=== PATIENT | female | born 1935 | race Hispanic/Latino ===

== ENCOUNTER 2018-04-09 09:08 | Emergency (ER) | payer MEDICARE ==
[2018-04-09] MEDS ORDERED: HYDROCODONE/APAP 5/325 MG TAB ONE (09:40)
--- NOTE | 2018-04-09 10:36 | RAD REPORT ---
EXAM DESCRIPTION: RAD - Wrist Left 3 View - 04/09/2018 9:46 am CLINICAL HISTORY: Persistent wrist pain following fall 2 days earlier COMPARISON: None. FINDINGS: No fracture is identified. There is no dislocation or periosteal reaction noted. Degenerat matt calcifications are present at the triangular fibrocartilage. There are mild degenerative changes at the trapezium first metacarpal articulation. IP joint degenerative changes are present. Minimal miryam int space narrowing at the third MCP joint. No air or foreign body in the soft tissues. IMPRESSION: Left hand and wrist degenerative changes are present as detailed. No fracture or acute finding confirmed.
--- NOTE | 2018-04-09 10:45 | EDPHYS ---
Physician Documentation [facility] Name: Rosa Hoang Age: 82 yrs Sex: Female : 1935 Arrival Date: 04/09/2018 Time: 09:11 Bed 19 Private MD: Aspen Kaplan H ED Physician Theron Rodriguez HPI: 04/09 10:23 This 82 yrs old Female presents to ER via Ambulatory with complaints of Left pm1 Wrist Injury. 10:23 The patient or guardian reports pain. The complaints affect the left wrist diffusely. pm1 Context: The problem was sustained outdoors, resulted from a fall, while walking, on an outstretched hand. Onset: The symptoms/episode began/occurred 2 day(s) ago. Modifying factors: The symptoms are alleviated by holding still, the symptoms are aggravated by movement. Associated signs and symptoms: Pertinent negatives: cyanosis distally, decreased sensation distally, fever, numbness distally, tingling distally. The patient has not experienced similar symptoms in the past. The patient has not recently seen a physician. No head injury, headache, neck pain, or LOC. Historical: - Allergies: 09:21 No Known Allergies; hb - Home Meds: 09:21 levothyroxine 75 mcg tab 1 tab once daily [Active]; hb - PMHx: 09:21 breast cancer; Hypertension; Hypothyroidism; hb - PSHx: 09:21 Appendectomy; Left Shoulder; Mastectomy, Right; Back surgery; hb - Immunization history:: Adult Immunizations up to date. - Social history:: Smoking status: Patient/guardian denies using tobacco. - Ebola Screening: : No symptoms or risks identified at this time. ROS: 10:23 Constitutional: Negative for fever, chills, and weight loss, Eyes: Negative for injury, pm1 pain, redness, and discharge, ENT: Negative for injury, pain, and discharge, Neck: Negative for injury, pain, and swelling, Cardiovascular: Negative for chest pain, palpitations, and edema, Respiratory: Negative for shortness of breath, cough, wheezing, and pleuritic chest pain, Abdomen/GI: Negative for abdominal pain, nausea, vomiting, diarrhea, and constipation, Back: Negative for injury and pain, : Negative for injury, bleeding, discharge, and swelling. 10:23 Skin: Negative for injury, rash, and discoloration, Neuro: Negative for headache, weakness, numbness, tingling, and seizure. 10:23 MS/extremity: Positive for pain, swelling, of the left wrist. Exam: 10:23 Hand exam: is negative for snuff box/scaphoid tenderness, Exam is positive for pm1 tenderness, diffusely on left wrist. Pulses: noted to be 2+ in the left radial artery, brisk capillary refill, sensation intact. 10:23 Constitutional: This is a well developed, well nourished patient who is awake, alert, and in no acute distress. Head/Face: Normocephalic, atraumatic. Neck: Trachea midline, no thyromegaly or masses palpated, and no cervical lymphadenopathy. Supple, full range of motion without nuchal rigidity, or vertebral point tenderness. No Meningismus. Chest/axilla: Normal chest wall appearance and motion. Nontender with no deformity. No lesions are appreciated. Cardiovascular: Regular rate and rhythm with a normal S1 and S2. No gallops, murmurs, or rubs. Normal PMI, no JVD. No pulse deficits. Respiratory: Lungs have equal breath sounds bilaterally, clear to auscultation and percussion. No rales, rhonchi or wheezes noted. No increased work of breathing, no retractions or nasal flaring. Back: No spinal tenderness. No costovertebral tenderness. Full range of motion. Skin: Warm, dry with normal turgor. Normal color with no rashes, no lesions, and no evidence of cellulitis. 10:23 Neuro: Orientation: is normal, Motor: is normal, moves all fours, Sensation: is normal, no obvious gross deficits. Vital Signs: 09:19 BP 187 / 88; Pulse 93; Resp 16; Temp 97.3; Pulse Ox 100% on R/A; Pain 10/10; hb 10:45 BP 149 / 73; Pulse 81; Resp 18; Pulse Ox 98% on R/A; Pain 7/10; em MDM: 09:19 Patient medically screened. pm1 10:29 Data reviewed: vital signs. Data interpreted: Pulse oximetry: on room air is 100 %. pm1 Interpretation: normal. 10:36 Counseling: I had a detailed discussion with the patient and/or guardian regarding: the pm1 historical points, exam findings, and any diagnostic results supporting the discharge/admit diagnosis, radiology results, the need for outpatient follow up, for definitive care, a orthopedic surgeon, to return to the emergency department if symptoms worsen or persist or if there are any questions or concerns that arise at home. 04/09 09:25 Order name: Wrist Left (3 View) XRAY; Complete Time: 10:41 pm1 04/09 10:43 Order name: Wrist Splint; Complete Time: 11:14 pm1 Administered Medications: 09:32 Drug: [place] 5 mg-325 mg 1 tabs Route: PO; em 11:14 Follow up: Response: No adverse reaction; Pain is decreased em Disposition: 12:59 Co-signature as Attending Physician, Theron Rodriguez MD I agree with the assessment and kdr plan of care. Disposition: 04/09/18 10:44 Discharged to Home. Impression: Unspecified sprain of left wrist. - Condition is Stable. - Discharge Instructions: Cast or Splint Care, Adult, Wrist Pain, Wrist Splint, How to Use a Sling. - Prescriptions for Tylenol- Codeine #3 300-30 mg Oral Tablet - take 1 tablet by ORAL route every 6 hours As needed; 15 tablet. - Medication Reconciliation Form, Thank You Letter, Antibiotic Education, Prescription Opioid Use form. - Follow up: Emergency Department; When: As needed; Reason: Worsening of condition. Follow up: Dr. Edy Pena; When: 2 - 3 days; Reason: Recheck today's complaints, Continuance of care, Re-evaluation by your physician. - Problem is new. - Symptoms have improved. Signatures: Dispatcher [employer] EDKY Theron Rodriguez MD MD [facility] Thomas Ireland, CAGE LOADER CAGE LOADER em Murray Munoz, CAMP NURSE CAMP NURSE pm1 Dahlia Perez, RN RN hb Corrections: (The following items were deleted from the chart) 10:43 10:18 Splint - Sugar Tong - Forearm ordered. pm1 pm1 11:14 10:18 Sling ordered. pm1 em 11:15 10:44 04/09/2018 10:44 Discharged to Home. Impression: Unspecified sprain of left em wrist. Condition is Stable. Discharge Instructions: Cast or Splint Care, Adult, Wrist Splint, How to Use a Sling. Prescriptions for Tylenol-Codeine #3 300-30 mg Oral Tablet - take 2 tablets by ORAL route every 6 hours As needed; 20 tablet. and Forms are Medication Reconciliation Form, Thank You Letter, Antibiotic Education, Prescription Opioid Use. Follow up: Emergency Department; When: As needed; Reason: Worsening of condition. Follow up: Dr. Edy Pena; When: 2 - 3 days; Reason: Recheck today's complaints, Continuance of care, Re-evaluation by your physician. Problem is new. Symptoms have improved. pm1
--- NOTE | 2018-04-09 10:45 | ER ---
Nurse's Notes [facility] Name: Rosa Hoang Age: 82 yrs Sex: Female : 1935 Arrival Date: 04/09/2018 Time: 09:11 Bed 19 Private MD: Aspen Kaplan H Diagnosis: Unspecified sprain of left wrist Presentation: 04/09 09:20 Presenting complaint: Left wrist pain and swelling after fall onto outstretched hand 2 hb days ago. Transition of care: patient was not received from another setting of care. Onset of symptoms was April 07, 2018. Risk Assessment: Do you want to hurt yourself or someone else? Patient reports no desire to harm self or others. Initial Sepsis Screen: Does the patient meet any 2 criteria? No. Patient's initial sepsis screen is negative. Does the patient have a suspected source of infection? No. Patient's initial sepsis screen is negative. Care prior to arrival: None. 09:20 Method Of Arrival: Ambulatory hb 09:20 Acuity: LEE 4 hb Historical: - Allergies: 09:21 No Known Allergies; hb - Home Meds: 09:21 levothyroxine 75 mcg tab 1 tab once daily [Active]; hb - PMHx: 09:21 breast cancer; Hypertension; Hypothyroidism; hb - PSHx: 09:21 Appendectomy; Left Shoulder; Mastectomy, Right; Back surgery; hb - Immunization history:: Adult Immunizations up to date. - Social history:: Smoking status: Patient/guardian denies using tobacco. - Ebola Screening: : No symptoms or risks identified at this time. Screenin:21 Abuse screen: Denies threats or abuse. Denies injuries from another. Nutritional hb screening: No deficits noted. Tuberculosis screening: No symptoms or risk factors identified. Fall Risk None identified. Assessment: 09:50 General: Appears in no apparent distress. uncomfortable, Behavior is calm, cooperative, em reports trip injury 2 days ago. Pain: Complains of pain in left wrist Pain currently is 10 out of 10 on a pain scale. Quality of pain is described as sharp, Pain began Thursday. Neuro: Level of Consciousness is awake, alert, obeys commands, Oriented to person, place, time, situation. Cardiovascular: Patient's skin is warm and dry. Respiratory: Airway is patent Respiratory effort is even, unlabored, Respiratory pattern is regular, symmetrical. Derm: Skin is intact, is thin, Skin is pink, warm \T\ dry. Musculoskeletal: Circulation, motion, and sensation intact. Capillary refill < 3 seconds, Range of motion: intact in all extremities, Swelling present in left hand. Vital Signs: 09:19 BP 187 / 88; Pulse 93; Resp 16; Temp 97.3; Pulse Ox 100% on R/A; Pain 10/10; hb 10:45 BP 149 / 73; Pulse 81; Resp 18; Pulse Ox 98% on R/A; Pain 7/10; em ED Course: 09:11 Patient arrived in ED. as 09:11 Aspen Kaplan DO is Private Physician. as 09:15 [facility]. pm1 09:15 Theron Rodriguez MD is Attending Physician. pm1 09:20 Triage completed. hb 09:21 Arm band placed on. hb 09:21 Patient has correct armband on for positive identification. Bed in low position. Call hb light in reach. Side rails up X 1. 09:25 Isela Diaz RN is Primary Nurse. sv 09:47 X-ray completed. Portable x-ray completed in exam room. Patient tolerated procedure sw well. 09:49 Wrist Left (3 View) XRAY In Process Unspecified. EDMS 10:43 Edy Pena MD is Referral Physician. pm1 11:15 No provider procedures requiring assistance completed. Patient did not have IV access em during this emergency room visit. Administered Medications: 09:32 Drug: [place] 5 mg-325 mg 1 tabs Route: PO; em 11:14 Follow up: Response: No adverse reaction; Pain is decreased em Outcome: 10:44 Discharge ordered by . pm1 11:15 Discharged to home ambulatory, with family. em 11:15 Condition: good 11:15 Discharge instructions given to patient, Instructed on discharge instructions, follow up and referral plans. medication usage, Demonstrated understanding of instructions, follow-up care, medications, Prescriptions given X 1. 11:15 Patient left the ED. em Signatures: Dispatcher [employer] EDLA Isela Diaz RN RN sv Thomas Ireland, AVIATION TECHNICIAN AIRCRAFT AVIATION TECHNICIAN AIRCRAFT em Leatha Fletcher Shannon Murray Munoz NP SATURATION EQUIPMENT OPERATOR pm1 Dahlia Perze, RN RN hb
[2018-04-09 11:20] VITALS: TEMP 97.3
[2018-04-09 11:22] VITALS: BP 149/73; O2SAT 98
== END 2018-04-09 11:15 | disposition home or self-care (01) ==
LOC: ER 09:08
DX: S63.502A Unspecified sprain of left wrist, initial encounter (principal); W18.39XA Other fall on same level, initial encounter; Y93.01 Activity, walking, marching and hiking; Y92.89 Other specified places as the place of occurrence of the external cause; Z85.3 Personal history of malignant neoplasm of breast; Z90.11 Acquired absence of right breast and nipple; I10 Essential (primary) hypertension; E03.9 Hypothyroidism, unspecified
CPT/HCPCS: 99283

== ENCOUNTER 2021-11-24 09:18 | Emergency (ER) | payer OTHER ==
[2021-11-24 09:52] LABS: Absolute Lymphocytes (CBC) 3.1 K/uL (0.7-4.9); Hematocrit 39.8 % (36.0-45.0); Lymphocytes % 40.5 % (15.3-44.8); MCV 93.8 fL (80-100); MPV 8.4 fL (7.6-11.3); RBC Red Blood Cell Count 4.24 M/uL (3.86-4.86)
[2021-11-24 10:35] LABS: Troponin High Sensitivity 5.3 pg/mL (<58.9)
--- NOTE | 2021-11-24 10:41 | RAD REPORT ---
EXAM DESCRIPTION: CT - CTHCSPWOC - 11/24/2021 10:03 am CLINICAL HISTORY: left arm tingling, stroke-like symptoms, chest discomfort, hypertension, breast ca ncer, prior appendectomy, right mastectomy and back surgery COMPARISON: No comparisons TECHNIQUE: Axial 5 mm thick images of the head were obtained. Axial 2 mm thick images of the cervic al spine were obtained with sagittal and coronal reconstruction images generated and reviewed. All CT scans are performed using dose optimization technique as appropriate and may include automated exposure control or mA/KV adjustment according to patient size. FINDINGS: No intracranial hemorrhage, mass, edema or acute intracranial finding. No suspicion for ac [place] infarction. No significant atrophy or chronic ischemic changes seen. Ventricle. Mastoid air cells are clear. No acute paranasal sinus finding. No globe or orbit abnormality seen. Cervical body height and alignment are normal. C5-6 disc space narrowing present. No fracture or acut e bony abnormality. Prominent facet joint degenerative changes are present. There are calcifications of the transverse ligament posterior to the dens. Mild to moderate amount of foraminal encroachment o n the right C4-5. There is moderate foraminal stenosis on the left at C5-6. Central canal detail is i nherently limited. No paraspinal mass or hematoma. Limited imaging of the uppermost chest shows scarring at the left apex. IMPRESSION: Negative CT head examination for acute or significant finding. Negative CT cervical spine examination for acute or significant finding.
--- NOTE | 2021-11-24 12:57 | RAD REPORT ---
EXAM DESCRIPTION: RAD - Chest Single View - 11/24/2021 12:47 pm CLINICAL HISTORY: left arm tingling, chest discomfort COMPARISON: Two view chest 02/24/2021 TECHNIQUE: AP portable chest image was obtained 11/24/2021 12:47 pm . FINDINGS: No focal lung parenchymal process. Interstitial pattern is not clearly different from the comparison. Failure and volume overload are not suspected. Heart and vasculature are normal. No measu rable pleural effusion and no pneumothorax. No acute bony abnormality seen. No acute aortic finding. Right mastectomy changes are present with surgical clips in the right axilla. IMPRESSION: No acute cardiopulmonary process.
--- NOTE | 2021-11-24 13:04 | EDPHYS ---
Physician Documentation [facility] Name: Rosa Hoang Age: 86 yrs Sex: Female : 1935 Arrival Date: 11/24/2021 Time: 09:20 Bed 20 Private MD: Aspen Kaplan H ED Physician Avni Muhammad HPI: 11/24 09:35 This 86 yrs old Female presents to ER via Ambulatory with complaints of rn Numbness Of Arm. 09:36 The patient or guardian complains of numbness. rn 09:37 The complaints affect the anterior aspect of left shoulder, left bicep and dorsal rn aspect of left forearm. Onset: The symptoms/episode began/occurred 2 day(s) ago. Modifying factors: The symptoms are alleviated by massaging arm. the symptoms are aggravated by nothing. Severity of symptoms: At their worst the symptoms were moderate, in the emergency department the symptoms have improved. The patient has not experienced similar symptoms in the past. The patient has not recently seen a physician. Pt reports intermittent tingling and feeling "left arm asleep", began 2 days ago, better with massage of arm. Happens at night and during day. Currently feels ok. No neck pain. No trauma or fall. No chest pain. . Historical: - Allergies: : No Known Allergies; tw2 - Home Meds: : levothyroxine 75 mcg tab 1 tab once daily [Active]; tw2 - PMHx: :27 breast cancer; Hypertension; Hypothyroidism; tw2 - PSHx: :27 Appendectomy; back sx; R breast mastectomy; tw2 - Immunization history:: Client reports receiving the 2nd dose of the Covid vaccine. - Social history:: Smoking status: Patient denies any tobacco usage or history of. Patient uses alcohol, occasionally. - Family history:: not pertinent. - Hospitalizations: : No recent hospitalization is reported. ROS: 09:37 Constitutional: Negative for fever, chills, and weight loss, Eyes: Negative for injury, rn pain, redness, and discharge, Neck: Negative for injury, pain, and swelling, Cardiovascular: Negative for chest pain, palpitations, and edema, Respiratory: Negative for shortness of breath, cough, wheezing, and pleuritic chest pain, Abdomen/GI: Negative for abdominal pain, nausea, vomiting, diarrhea, and constipation, Back: Negative for injury and pain, MS/Extremity: Negative for injury and deformity, Skin: Negative for injury, rash, and discoloration, Neuro: Negative for headache, weakness, and seizure. Exam: 09:37 Constitutional: This is a well developed, well nourished patient who is awake, alert, rn and in no acute distress. Head/Face: Normocephalic, atraumatic. Eyes: Periorbital areas with no swelling, redness, or edema. Neck: Trachea midline, no thyromegaly or masses palpated, and no cervical lymphadenopathy. Supple, full range of motion without nuchal rigidity, or vertebral point tenderness. No Meningismus. Cardiovascular: Regular rate and rhythm. No pulse deficits. Respiratory: Speaking full sentences, unlabored. No increased work of breathing, no retractions or nasal flaring. Abdomen/GI: Soft, non-tender Skin: Warm, dry with normal turgor. Normal color with no rashes, no lesions, and no evidence of cellulitis. MS/ Extremity: Pulses equal, no cyanosis. Neurovascular intact. Full, normal range of motion. Equal circumference. Neuro: Awake and alert, GCS 15, oriented to person, place, time, and situation. Cranial nerves II-XII grossly intact. Motor strength 5/5 in all extremities. Sensory grossly intact. Cerebellar exam normal. Normal gait. 10:00 ECG was reviewed by the Attending Physician. rn Vital Signs: 09:25 BP 161 / 86; Pulse 74; Resp 17; Temp 99.1(TE); Pulse Ox 98% on R/A; Weight 63.5 kg (R); tw2 Pain 0/10; 09:59 BP 146 / 60; Pulse 80; Resp 16; Pulse Ox 98% ; mb8 12:11 BP 183 / 66; Pulse 66; Resp 14; Pulse Ox 99% ; Pain 0/10; mb8 12:26 BP 173 / 59; Pulse 67; Resp 18; Pulse Ox 97% ; Pain 0/10; mb8 MDM: 09:23 Patient medically screened. rn 13:00 Differential diagnosis: radiculopathy, neuropathy, cardiac etiology, anxiety. Data rn reviewed: vital signs, nurses notes, lab test result(s), EKG, radiologic studies, CT scan, plain films, and as a result, I will discharge patient. Counseling: I had a detailed discussion with the patient and/or guardian regarding: the historical points, exam findings, and any diagnostic results supporting the discharge/admit diagnosis, lab results, radiology results, the need for outpatient follow up, to return to the emergency department if symptoms worsen or persist or if there are any questions or concerns that arise at home. Special discussion: I discussed with the patient/guardian in detail that at this point there is no indication for admission to the hospital. It is understood, however, that if the symptoms persist or worsen the patient needs to return immediately for re-evaluation. ED course: Neg trop and ecg, cxr neg, stable vitals. CT head neg, cspine shows foraminal stenosis on right and left side that could explain intermittent tingling to arm. Will dc home with pcp f/u and return precautions.. 11/24 09:34 Order name: Basic Metabolic Panel; Complete Time: 11:11/24 09:34 Order name: CBC with Diff; Complete Time: 11:11/24 09:34 Order name: Magnesium; Complete Time: 11:11/24 09:34 Order name: NT PRO-BNP; Complete Time: 11:11/24 09:34 Order name: Troponin HS; Complete Time: 11:11/24 09:34 Order name: XRAY Chest (1 view); Complete Time: 12:59 11/24 09:34 Order name: EKG; Complete Time: 09:35 11/24 09:34 Order name: Cardiac monitoring; Complete Time: 09:47 11/24 09:34 Order name: EKG - Nurse/Tech; Complete Time: 09:56 11/24 09:34 Order name: IV Saline Lock; Complete Time: 09:47 11/24 09:34 Order name: Labs collected and sent; Complete Time: 09:47 11/24 09:34 Order name: O2 Per Protocol; Complete Time: :47 11/24 09:34 Order name: O2 Sat Monitoring; Complete Time: 09:11/24 09:34 Order name: CT Head C Spine; Complete Time: 11:11/24 09:55 Order name: Labs - recollect needed: recollect chemistries; Complete Time: 10:12 eb EC:00 Rate is 65 beats/min. Rhythm is regular. QRS [place] is Normal. [place] interval is normal. QRS rn interval is normal. QT interval is normal. No Q waves. T waves are Normal. No ST changes noted. Clinical impression: Normal ECG. Interpreted by me. Reviewed by me. Administered Medications: No medications were administered Disposition Summary: 11/24/21 13:03 Discharge Ordered Location: Home rn Problem: new rn Symptoms: have improved rn Condition: Stable rn Diagnosis - Paresthesia of skin rn Followup: rn - With: Private Physician - When: As needed - Reason: Recheck today's complaints, Re-evaluation by your physician Discharge Instructions: - Discharge Summary Sheet rn - Paresthesia rn Forms: - Medication Reconciliation Form rn - Thank You Letter rn - Antibiotic learning coordinator - Prescription Opioid Use rn Signatures: Dispatcher [employer] EDAvni Barnhart MD MD rn Wise, Tara, RN RN tw2 Botello, Elizabeth eb Corrections: (The following items were deleted from the chart) 09:40 09:37 Constitutional: This is a well developed, well nourished patient who is awake, rn alert, and in no acute distress. Head/Face: Normocephalic, atraumatic. Eyes: Periorbital areas with no swelling, redness, or edema. Cardiovascular: Regular rate and rhythm. No pulse deficits. Respiratory: Speaking full sentences, unlabored. No increased work of breathing, no retractions or nasal flaring. Abdomen/GI: Soft, non-tender Skin: Warm, dry with normal turgor. Normal color with no rashes, no lesions, and no evidence of cellulitis. MS/ Extremity: Pulses equal, no cyanosis. Neurovascular intact. Full, normal range of motion. Equal circumference. Neuro: Awake and alert, GCS 15, oriented to person, place, time, and situation. Cranial nerves II-XII grossly intact. Motor strength 5/5 in all extremities. Sensory grossly intact. Cerebellar exam normal. Normal gait. rn
--- NOTE | 2021-11-24 13:04 | ER ---
Nurse's Notes [facility] Name: Rosa Hoang Age: 86 yrs Sex: Female : 1935 Arrival Date: 11/24/2021 Time: 09:20 Bed 20 Private MD: Aspen Kaplan H Diagnosis: Paresthesia of skin Presentation: 11/24 09:25 Chief complaint: Patient states: my LEFT arm has been going to sleep and i feel that tw2 but i hear something in my chest and it started on Thursday. i couldn't sleep last night. but no pain. i live by myself so i wanted to get it checked out. Coronavirus screen: At this time, the client does not indicate any symptoms associated with coronavirus-19. Ebola Screen: Patient denies travel to an Ebola-affected area in the 21 days before illness onset. Initial Sepsis Screen: Does the patient meet any 2 criteria? No. Patient's initial sepsis screen is negative. Does the patient have a suspected source of infection? No. Patient's initial sepsis screen is negative. Risk Assessment: Do you want to hurt yourself or someone else? Patient reports no desire to harm self or others. Onset of symptoms was November 24, 2021. 09: Method Of Arrival: Ambulatory tw2 : Acuity: LEE 3 tw2 Triage Assessment: : General: Appears in no apparent distress. well groomed, Behavior is calm, cooperative, tw2 appropriate for age. Pain: Complains of pain in left arm. Neuro: Level of Consciousness is awake, alert, obeys commands, Oriented to person, place, time, situation. Cardiovascular: Patient's skin is warm and dry. Respiratory: Airway is patent Respiratory effort is even, unlabored, Respiratory pattern is regular, symmetrical. Historical: - Allergies: : No Known Allergies; tw2 - Home Meds: levothyroxine 75 mcg tab 1 tab once daily [Active]; tw2 - PMHx: breast cancer; Hypertension; Hypothyroidism; tw2 - PSHx: Appendectomy; back sx; R breast mastectomy; tw2 - Immunization history:: Client reports receiving the 2nd dose of the Covid vaccine. - Social history:: Smoking status: Patient denies any tobacco usage or history of. Patient uses alcohol, occasionally. - Family history:: not pertinent. - Hospitalizations: : No recent hospitalization is reported. Screenin:59 Abuse screen: Denies threats or abuse. Denies injuries from another. Nutritional mb8 screening: No deficits noted. Tuberculosis screening: No symptoms or risk factors identified. Tuberculosis screening: No symptoms or risk factors identified. Fall Risk None identified. Assessment: 09:30 Cardiovascular: Reports left arm tingling, reports it is intermittent. Denies chest mb8 pain, shortness of breath, Capillary refill < 3 seconds Pulses are all present. are 2+ in right radial artery and left radial artery. Respiratory: Breath sounds are clear bilaterally. GI: No deficits noted. : No deficits noted. 10:30 Reassessment: Patient and/or family updated on plan of care and expected duration. Pain mb8 level reassessed. Patient is alert, oriented x 3, equal unlabored respirations, skin warm/dry/pink. 11:30 Reassessment: Patient and/or family updated on plan of care and expected duration. Pain mb8 level reassessed. Patient is alert, oriented x 3, equal unlabored respirations, skin warm/dry/pink. 12:12 Reassessment: Patient and/or family updated on plan of care and expected duration. Pain mb8 level reassessed. Patient is alert, oriented x 3, equal unlabored respirations, skin warm/dry/pink. 12:44 Reassessment: unable to see XRAY. Notified radiology department. Awaiting to XRAY ss results prior to disposition. Vital Signs: 09:25 BP 161 / 86; Pulse 74; Resp 17; Temp 99.1(TE); Pulse Ox 98% on R/A; Weight 63.5 kg (R); tw2 Pain 0/10; 09:59 BP 146 / 60; Pulse 80; Resp 16; Pulse Ox 98% ; mb8 12:11 BP 183 / 66; Pulse 66; Resp 14; Pulse Ox 99% ; Pain 0/10; mb8 12:26 BP 173 / 59; Pulse 67; Resp 18; Pulse Ox 97% ; Pain 0/10; mb8 Vitals: 09:59 Cardiac Rhythm Assessment Sinus rhythm. mb8 12:11 Cardiac Rhythm Assessment Sinus rhythm. mb8 ED Course: 09:20 Patient arrived in ED. mr 09:21 Aspen Kaplan DO is Private Physician. mr 09:23 Avni Muhammad MD is Attending Physician. rn 09:27 Triage completed. tw2 09:28 Arm band placed on. tw2 09:30 Patient has correct armband on for positive identification. Placed in gown. Bed in low mb8 position. Call light in reach. Side rails up X2. Client placed on continuous cardiac and pulse oximetry monitoring. NIBP monitoring applied. compliance monitor on. 09:31 Juan Pablo Garcia, RN is Primary Nurse. mb8 09:40 Inserted saline lock: 20 gauge in left antecubital area, using aseptic technique. Blood mb8 collected. 10:00 No provider procedures requiring assistance completed. mb8 10:05 CT Head C Spine In Process Unspecified. EDMS 10:12 XRAY Chest (1 view) Sent. mb8 10:17 XRAY Chest (1 view) In Process Unspecified. EDMS 13:19 IV discontinued, intact, bleeding controlled, No redness/swelling at site. Pressure mb8 dressing applied. Administered Medications: No medications were administered Medication: 09:59 VIS not applicable for this client. mb8 Outcome: 13:03 Discharge ordered by . rn 13:18 Discharged to home ambulatory. mb8 13:18 Condition: stable 13:18 Discharge instructions given to patient, Instructed on discharge instructions, follow up and referral plans. Demonstrated understanding of instructions, follow-up care. 13:19 Patient left the ED. mb8 Signatures: Dispatcher [employer] EDMD Maryjo Pillai mr Avni Muhammad MD MD rn Smirch, Shelby, RN RN ss Wise, Tara, RN RN tw2 Juan Pablo Garcia, JOSELINE TREVIZO mb8
--- NOTE | 2021-11-25 14:10 | EKG ---
Test Date: 2021-11-24 Test Time: 09:49:32 [employer]: MEASUREMENT RESULTS: Intervals: Rate: 65 VT: 164 QRSD: 78 QT: 422 QTc: 438 Henderson: P: 19 VT: 164 QRS: 9 T: 13 INTERPRETIVE STATEMENTS: Normal sinus rhythm Normal ECG Compared to ECG 02/24/2021 18:41:24 Sinus arrhythmia no longer present Electronically Signed On 11-25-21 14:08:28 CDT by Vikas Ragland
[2021-11-25 23:41] VITALS: TEMP 99.1
[2021-11-25 23:55] VITALS: BP 183/66; O2SAT 99
== END 2021-11-24 13:19 | disposition home or self-care (01) ==
LOC: ER 09:18
DX: R20.2 Paresthesia of skin (principal)
CPT/HCPCS: 36415; 70450; 71045; 72125; 80048; 83735; 83880; 84484; 85025; 93005; 99284

== ENCOUNTER 2022-02-08 14:01 | Emergency (ER) | payer OTHER ==
[2022-02-08 16:35] LABS: SARS-COV-2 RT PCR NEGATIVE (NEGATIVE)
[2022-02-08] MEDS ORDERED: AMOX/K CLAV 875 MG TAB ONE (17:00)
--- NOTE | 2022-02-08 17:01 | ER ---
Nurse's Notes [facility] Name: Rosa Hoang Age: 86 yrs Sex: Female : 1935 Arrival Date: 02/08/2022 Time: 14:02 Bed DIS4 Private MD: Aspen Kaplan H Diagnosis: Streptococcal pharyngitis Presentation: 02/08 15:13 Chief complaint: Patient states: sore throat X 3 days, no fever or cough just pain. iw Coronavirus screen: Client presents with at least one sign or symptom that may indicate coronavirus-19. Ebola Screen: Patient negative for fever greater than or equal to 101.5 degrees Fahrenheit, and additional compatible Ebola Virus Disease symptoms Patient denies exposure to infectious person. Patient denies travel to an Ebola-affected area in the 21 days before illness onset. No symptoms or risks identified at this time. Initial Sepsis Screen: Does the patient meet any 2 criteria? No. Patient's initial sepsis screen is negative. Does the patient have a suspected source of infection? No. Patient's initial sepsis screen is negative. Risk Assessment: Do you want to hurt yourself or someone else? Patient reports no desire to harm self or others. Onset of symptoms was February 05, 2022. 15:13 Method Of Arrival: Ambulatory iw 15:13 Acuity: LEE 4 iw Historical: - Allergies: 15:15 No Known Allergies; iw - Home Meds: 15:15 levothyroxine 75 mcg tab 1 tab once daily [Active]; iw - PMHx: 15:15 breast cancer; Hypertension; Hypothyroidism; iw - PSHx: 15:15 Appendectomy; back sx; R breast mastectomy; iw Vital Signs: 15:13 BP 147 / 63; Pulse 92; Resp 16; Temp 98.5; Pulse Ox 100% on R/A; iw ED Course: 14:02 Patient arrived in ED. am2 14:02 Aspen Kaplan DO is Private Physician. am2 15:15 Triage completed. iw 15:15 Arm band placed on. iw 15:18 Tawana Ribera RN is Primary Nurse. iw 15:44 Pieter Moran PA is PHCP. cp 15:44 Mohinder Bernstein MD is Attending Physician. cp Administered Medications: 17:00 Drug: Augmentin (Amoxicillin-Clavulanate) 875 mg Route: PO; iw Outcome: 17:00 Discharge ordered by MD. cameron 17:08 Patient left the ED. iw Signatures: Tawana Ribera RN RN iw Pieter Moran PA PA cp Moreno, Amanda am2 Corrections: (The following items were deleted from the chart) 15:15 15:13 Pulse 92bpm; Resp 16bpm; Pulse Ox 100% RA; Temp 98.5F; iw iw
--- NOTE | 2022-02-08 17:01 | EDPHYS ---
Physician Documentation [facility] Name: Rosa Hoang Age: 86 yrs Sex: Female : 1935 Arrival Date: 02/08/2022 Time: 14:02 Bed DIS4 Private MD: Aspen Kaplan H ED Physician Mohinder Bernstein HPI: 02/08 16:00 This 86 yrs old Female presents to ER via Ambulatory with complaints of cp Difficulty Swallowing, Sore Throat. 16:00 The patient presents with sore throat, dysphagia, of solids. cp 16:00 Onset: The symptoms/episode began/occurred 3 day(s) ago. cp 16:00 The patient describes throat pain as constant. Modifying factors: the symptoms are cp aggravated by swallowing. Associated signs and symptoms: Pertinent negatives chest pain, cough, diarrhea, earache, fever, headache, vomiting. Historical: - Allergies: 15:15 No Known Allergies; iw - Home Meds: 15:15 levothyroxine 75 mcg tab 1 tab once daily [Active]; iw - PMHx: 15:15 breast cancer; Hypertension; Hypothyroidism; iw - PSHx: 15:15 Appendectomy; back sx; R breast mastectomy; iw ROS: 16:05 Constitutional: Negative for body aches, fever, poor PO intake. cp 16:05 Eyes: Negative for injury, pain, redness, and discharge. cp 16:05 ENT: Positive for sore throat, Negative for drainage from ear(s), ear pain, difficulty swallowing, difficulty handling secretions. 16:05 Respiratory: Negative for cough, shortness of breath, wheezing. 16:05 Abdomen/GI: Negative for abdominal pain, vomiting, diarrhea, constipation. 16:05 Neuro: Negative for altered mental status, headache, weakness. 16:05 All other systems are negative. Exam: 16:10 Constitutional: The patient appears in no acute distress, alert, awake, non-toxic, well cp developed, well nourished. 16:10 Head/Face: Normocephalic, atraumatic. cp 16:10 Eyes: Periorbital structures: appear normal, Conjunctiva: normal, no exudate, no cp injection, Sclera: no appreciated abnormality, Lids and lashes: appear normal, bilaterally. 16:10 ENT: External ear(s): are unremarkable, Ear canal(s): are normal, clear, TM's: cp dullness, bilaterally, Nose: is normal, Mouth: Lips: moist, Oral mucosa: moist, Posterior pharynx: Airway: no evidence of obstruction, patent, Tonsils: no enlargement, no exudate, Uvula: midline, erythema, that is marked, exudate, is not appreciated. 16:10 Neck: ROM/movement: is normal, is supple, no meningismus, no nuchal rigidity, Lymph nodes: lymphadenopathy is appreciated, anterior cervical nodes. 16:10 Chest/axilla: Inspection: normal. 16:10 Cardiovascular: Rate: normal, Rhythm: regular. 16:10 Respiratory: the patient does not display signs of respiratory distress, Respirations: normal, no use of accessory muscles, no retractions, labored breathing, is not present, Breath sounds: are clear throughout, no decreased breath sounds, no stridor, no wheezing. 16:10 Abdomen/GI: Inspection: abdomen appears normal. 16:10 Skin: no rash present. Vital Signs: 15:13 BP 147 / 63; Pulse 92; Resp 16; Temp 98.5; Pulse Ox 100% on R/A; iw MDM: 15:45 Patient medically screened. cp 16:30 Differential diagnosis: epiglottitis, group A strep tonsillitis, influenza, laryngitis, cp marcelo's angina, mononucleosis, peritonsillar abscess pharyngitis. 17:00 Data reviewed: vital signs, nurses notes, lab test result(s). cp 17:00 Counseling: I had a detailed discussion with the patient and/or guardian regarding: the cp historical points, exam findings, and any diagnostic results supporting the discharge/admit diagnosis, lab results, to return to the emergency department if symptoms worsen or persist or if there are any questions or concerns that arise at home. 02/08 15:16 Order name: Strep; Complete Time: 16:59 iw 02/08 16:59 Interpretation: Reviewed. cp 02/08 15:16 Order name: COVID-19/FLU A+B; Complete Time: 16:59 iw Administered Medications: 17:00 Drug: Augmentin (Amoxicillin-Clavulanate) 875 mg Route: PO; iw Disposition Summary: 02/08/22 17:00 Discharge Ordered Location: Home cp Problem: new cp Symptoms: have improved cp Condition: Stable cp Diagnosis - Streptococcal pharyngitis cp Followup: cp - With: Private Physician - When: 2 - 3 days - Reason: Worsening of condition Discharge Instructions: - Discharge Summary Sheet cp - Strep Throat, Adult cp Forms: - Medication Reconciliation Form cp - Thank You Letter cp - Antibiotic Education cp - Prescription Opioid Use cp Prescriptions: - Lidocaine Viscous - take 5 milliliter by ORAL route every 4-6 hours; 1 bottle; Refills: 0, Product cp Selection Permitted - Augmentin 875-125 mg Oral Tablet - take 1 tablet by ORAL route every 12 hours for 10 days; 20 tablet; Refills: 0, cp Product Selection Permitted Signatures: Dispatcher [employer] Tawana Gonzalez RN RN Pieter Batista PA PA cp
[2022-02-08 22:14] VITALS: BP 147/63; TEMP 98.5; O2SAT 100
== END 2022-02-08 17:08 | disposition home or self-care (01) ==
LOC: ER 14:01
DX: J02.0 Streptococcal pharyngitis (principal); E03.9 Hypothyroidism, unspecified; I10 Essential (primary) hypertension; Z20.822 Contact with and (suspected) exposure to COVID-19
CPT/HCPCS: 87081; 0240U; 99282